=== PATIENT | male | born 1950 | race Caucasian/White ===

== ENCOUNTER 2017-08-25 07:29 | Day surgery (SDC) | payer MEDICARE, OTHER ==
[~2017-08-25] VITALS: Ht 177.8 cm; Wt 109.8 kg
[~2017-08-25 07:29] MED LIST: ALBU90OI INH; AMLO5 PO; DICMIS50EC PO; DOXY100T53 PO; IBUP600 PO; Kristalose20 GM PO; LIDO700A20 TOP; LISI20 PO; LISI5 PO; LORA.5 PO; LORA1 PO; LOSA50 PO; METO100 PO; METO100ER PO; METO50 PO; NAPR220 PO; NEBI5 PO; Omeprazole20 M1 PO; PRAV20 PO; RXLORA1 PO; TAMS.4ER PO; WARF2.5 PO; WARF5 PO
[2018-08-05] MEDS ORDERED: PANT40 PO (09:53)
[2018-08-05] MEDS ORDERED: WARF2.5 PO (09:55)
== END 2017-08-25 09:32 | disposition home or self-care (01) ==
LOC: ORSCMMR 07:29
PROVIDERS: Internal Medicine Gastroenterology
PROC: 0DBP8ZX Excision of Rectum, Via Natural or Artificial Opening Endoscopic, Diagnostic (ICD-10-PCS; principal; 2017-08-25 09:00)
PROC: 0DBN8ZX Excision of Sigmoid Colon, Via Natural or Artificial Opening Endoscopic, Diagnostic (ICD-10-PCS; principal; 2017-08-25 09:00)
DX: Z12.11 Encounter for screening for malignant neoplasm of colon (principal); K62.1 Rectal polyp; K63.5 Polyp of colon; D12.5 Benign neoplasm of sigmoid colon; K57.30 Diverticulosis of large intestine without perforation or abscess without bleeding; Z86.010 Personal history of colon polyps; K90.0 Celiac disease; I10 Essential (primary) hypertension; K21.9 Gastro-esophageal reflux disease without esophagitis; E78.00 Pure hypercholesterolemia, unspecified; Z87.891 Personal history of nicotine dependence; Z79.899 Other long term (current) drug therapy
CPT/HCPCS: 88305; J7120

== ENCOUNTER 2018-02-10 15:37 | Emergency (ER) | payer MEDICARE, OTHER ==
[~2018-02-10] VITALS: Ht 180.3 cm; Wt 113.4 kg
[2018-02-10] MEDS ORDERED: LIDO700A20 TOP (17:37)
== END 2018-02-10 17:43 | disposition home or self-care (01) ==
LOC: ER 15:37
DX: M54.5 Low back pain (principal); Z88.1 Allergy status to other antibiotic agents; Z88.2 Allergy status to sulfonamides; Z88.5 Allergy status to narcotic agent; Z88.6 Allergy status to analgesic agent; Z79.899 Other long term (current) drug therapy; I10 Essential (primary) hypertension; E78.00 Pure hypercholesterolemia, unspecified; F41.9 Anxiety disorder, unspecified
CPT/HCPCS: 51798; 72100; 96372; 99283; J1885

== ENCOUNTER 2018-02-10 19:18 | Emergency (ER) | payer MEDICARE, OTHER ==
[~2018-02-10] VITALS: Ht 180.3 cm; Wt 113.4 kg
== END 2018-02-10 20:35 | disposition left against medical advice (07) ==
LOC: ER 19:18
DX: Z53.21 Procedure and treatment not carried out due to patient leaving prior to being seen by health care provider (principal)
CPT/HCPCS: 99281

== ENCOUNTER 2018-08-09 09:29 | Day surgery (SDC) | payer MEDICARE, OTHER ==
[~2018-08-09] VITALS: Ht 177.8 cm; Wt 115.2 kg
[~2018-08-09 09:29] MED LIST changes: +PANT40 PO
[2018-08-09] MEDS ORDERED: MELO7.5 PO (10:50)
[2018-08-09] MEDS ORDERED: ALBU90OI INH (10:51)
== END 2018-08-09 22:36 | disposition home or self-care (01) ==
LOC: ORSCMMR 09:29 → ORD 10:30 → ORSCMMR 22:36
PROVIDERS: Internal Medicine Gastroenterology
PROC: 0DB58ZX Excision of Esophagus, Via Natural or Artificial Opening Endoscopic, Diagnostic (ICD-10-PCS; principal; 2018-08-09 10:30)
PROC: 0DB98ZX Excision of Duodenum, Via Natural or Artificial Opening Endoscopic, Diagnostic (ICD-10-PCS; principal; 2018-08-09 10:30)
DX: K21.9 Gastro-esophageal reflux disease without esophagitis (principal); K29.80 Duodenitis without bleeding; I10 Essential (primary) hypertension; Z79.899 Other long term (current) drug therapy; Z79.01 Long term (current) use of anticoagulants; Z87.891 Personal history of nicotine dependence
CPT/HCPCS: 88305; 88342; J7120

== ENCOUNTER 2019-04-15 11:02 | Emergency (ER) | payer MEDICARE, OTHER ==
[~2019-04-15] VITALS: Ht 175.3 cm; Wt 114.3 kg
[~2019-04-15 11:02] MED LIST changes: +MELO7.5 PO
[2019-04-15 11:34] LABS: BASOPHILS ABSOLUTE AUTO 0.04 K/mm3 (0.00-0.23); BASOPHILS PERCENT AUTO 1 % (0-2); EOSINOPHILS ABSOLUTE AUTO 0.16 K/mm3 (0.00-0.68); EOSINOPHILS PERCENT AUTO 3 % (0-6); Hematocrit 44.3 % (37.0-53.0); Hemoglobin 15.2 g/dL (13.5-17.5); IMMATURE GRAN ABSOLUTE AUTO 0.02 K/mm3 (0.00-0.10); IMMATURE GRAN PERCENT AUTO 0 % (0-1); LYMPHOCYTES ABSOLUTE AUTO 1.35 K/mm3 (0.84-5.20); LYMPHOCYTES PERCENT AUTO 25 % (21-46); MONOCYTES ABSOLUTE AUTO 0.51 K/mm3 (0.16-1.47); MONOCYTES PERCENT AUTO 9 % (4-13); Mean Corpuscular HGB 29.1 pg (26.0-34.0); Mean Corpuscular HGB Conc 34.3 g/dL (31.5-36.5); Mean Corpuscular Volume 85 fL (80-100); NEUTROPHILS ABSOLUTE AUTO 3.32 K/mm3 (1.96-9.15); NEUTROPHILS PERCENT AUTO 62 % (41-73); Platelet Count 177 K/mm3 (150-400); RDW Coefficient Variation 13.3 % (11.7-14.2); RDW Standard Deviation 41.8 fL (35.1-46.3); Red Blood Cell Count 5.23 M/mm3 (4.30-5.90)
[2019-04-15] MEDS ORDERED: Ultram50 MG PO (11:35)
[2019-04-15 11:46] LABS: International Normalized Ratio 2.95; Prothrombin Time Results 28.3 Sec (9.7-11.5)
[2019-04-15 12:03] LABS: Alanine Aminotransfer (ALT/SGP 23 U/L (12-78); Albumin, Blood 3.9 g/dL (3.4-5.0); Albumin/Globulin Ratio 1.2 (0.8-1.8); Alk Phos 71 U/L (50-136); Anion Gap 8 mmol/L (6-16); Aspartate Aminotrans (AST/SGOT 14 U/L (12-37); Bilirubin, Total 0.8 mg/dL (0.1-1.0); Blood Urea Nitrogen 23 mg/dL (8-24); Bun/Creatinine Ratio 15.4 (12.0-20.0); CO2, Blood 27 mmol/L (21-32); Calcium, Blood 8.9 mg/dL (8.5-10.1); Chloride, Blood 104 mmol/L (98-108); Creatinine, Blood 1.49 mg/dL (0.60-1.20); Globulin, Blood 3.2 g/dL (2.2-4.0); Glomerular Filtration Rate 50 (60-); Glucose, Blood 94 mg/dL (70-99); Potassium, Blood 4.1 mmol/L (3.5-5.5); Sodium, Blood 139 mmol/L (136-145); Total Protein, Blood 7.1 g/dL (6.4-8.2); Troponin I <0.015 ng/mL (0.000-0.040)
[2019-04-15] MEDS ORDERED: HYDR1TAB94 PO (12:46)
== END 2019-04-15 12:55 | disposition home or self-care (01) ==
LOC: ER 11:02
PROVIDERS: Physician Assistant
DX: M62.830 Muscle spasm of back (principal); Z88.1 Allergy status to other antibiotic agents; Z88.8 Allergy status to other drugs, medicaments and biological substances; Z88.5 Allergy status to narcotic agent; Z79.899 Other long term (current) drug therapy; Z79.01 Long term (current) use of anticoagulants; I10 Essential (primary) hypertension; E78.00 Pure hypercholesterolemia, unspecified; Z87.891 Personal history of nicotine dependence
CPT/HCPCS: 36415; 71046; 80053; 84484; 85025; 85610; 93005; 93010; 96374; 96375; 99285-25; J1170; J3360

== ENCOUNTER 2022-09-16 08:43 | Day surgery (SDC) | payer MEDICARE, OTHER ==
[~2022-09-16] VITALS: Ht 175.3 cm; Wt 113.1 kg
[~2022-09-16 08:43] MED LIST changes: +HYDR1TAB94 PO; +Ultram50 MG PO
--- NOTE | 2022-09-16 10:04 | NUR ---
09/16/22 1004 Radha Escalante HISTORY, CHART, MEDICATIONS AND ALLERGIES REVIEWED BEFORE START OF PROCEDURE. PATIENT CONFIRMS NPO STATUS AND AGREES WITH SCHEDULED PROCEDURE. 3-LEAD EKG REVIEWED WITH PHYSICIAN PRIOR TO START OF PROCEDURE. MONITOR INTACT WITH CONTINUOUS PULSE OXIMETRY,CAPNOGRAPHY, 3-LEAD EKG, INTERMITTENT BP. SUPPLEMENTAL O2 TO BE TITRATED THROUGHOUT PROCEDURE TO MAINTAIN O2 SATURATION ABOVE 90%. PATIENT DETERMINED TO BE ASA APPROPRIATE FOR PROPOFOL SEDATION PRIOR TO START OF PROCEDURE BY DR. PRESTON.
--- NOTE | 2022-09-16 11:35 | NUR ---
Patient up to Ambulate independently. Gait steady. Discharge instructions reviewed with patient. Patient verbalizes understanding. Copy given to patient to take home, WELL . Patient States Post-Procedure ride home has been arranged. Discharged via wheelchair to private car for ride home.
== END 2022-09-16 11:35 | disposition home or self-care (01) ==
LOC: ORSCMMR 08:43 → ORD 09:30 → ORSCMMR 09:30
PROVIDERS: Internal Medicine Gastroenterology
PROC: 0DB98ZX Excision of Duodenum, Via Natural or Artificial Opening Endoscopic, Diagnostic (ICD-10-PCS; principal; 2022-09-16 09:30)
PROC: 0DBP8ZX Excision of Rectum, Via Natural or Artificial Opening Endoscopic, Diagnostic (ICD-10-PCS; principal; 2022-09-16 09:30)
PROC: 0DB78ZX Excision of Stomach, Pylorus, Via Natural or Artificial Opening Endoscopic, Diagnostic (ICD-10-PCS; principal; 2022-09-16 09:30)
PROC: 0DB48ZX Excision of Esophagogastric Junction, Via Natural or Artificial Opening Endoscopic, Diagnostic (ICD-10-PCS; principal; 2022-09-16 09:30)
DX: K21.9 Gastro-esophageal reflux disease without esophagitis (principal); Z12.11 Encounter for screening for malignant neoplasm of colon; Z86.010 Personal history of colon polyps; K90.0 Celiac disease; K62.1 Rectal polyp; K44.9 Diaphragmatic hernia without obstruction or gangrene; I10 Essential (primary) hypertension; Z86.718 Personal history of other venous thrombosis and embolism; Z85.46 Personal history of malignant neoplasm of prostate; Z79.899 Other long term (current) drug therapy; Z79.01 Long term (current) use of anticoagulants; Z87.891 Personal history of nicotine dependence; E66.9 Obesity, unspecified; Z68.35 Body mass index [BMI] 35.0-35.9, adult
CPT/HCPCS: 88305; 88342; A9270; J2704; J7120

== ENCOUNTER → 2023-04-02 | Outpatient (CLI) | payer MEDICARE, OTHER ==
[2023-04-02 18:05] LABS: International Normalized Ratio 2.18; Prothrombin Time Results 21.9 Sec (9.7-11.5)
== END ==
LOC: LAB SHORT 15:00 → LAB 15:00
PROVIDERS: Physician Assistant
DX: Z51.81 Encounter for therapeutic drug level monitoring (principal); I82.409 Acute embolism and thrombosis of unspecified deep veins of unspecified lower extremity
CPT/HCPCS: 85610

== ENCOUNTER → 2023-04-06 | Outpatient (CLI) | payer MEDICARE, OTHER | LOC: PLD 08:22 → LAB SHORT 08:22 | DX: B35.1 Tinea unguium (principal); L60.2 Onychogryphosis | CPT/HCPCS: 88305; 88312 ==

== ENCOUNTER → 2023-04-15 | Outpatient (CLI) | payer MEDICARE, OTHER ==
[2023-04-15 14:02] LABS: International Normalized Ratio 2.85; Prothrombin Time Results 28.2 Sec (9.7-11.5)
== END ==
LOC: LAB 11:36 → LAB SHORT 11:36
PROVIDERS: Physician Assistant
DX: I82.409 Acute embolism and thrombosis of unspecified deep veins of unspecified lower extremity (principal)
CPT/HCPCS: 85610

== ENCOUNTER 2023-11-27 16:51 | Inpatient (IN) | payer MEDICARE, OTHER ==
[~2023-11-27] VITALS: Ht 177.8 cm; Wt 89.7 kg
[~2023-11-27 16:51] MED LIST changes: +AMLO10 PO; -AMLO5 PO; -METO50 PO
[2023-11-27 17:18] LABS: BASOPHILS ABSOLUTE AUTO 0.03 K/mm3 (0.00-0.23); BASOPHILS PERCENT AUTO 1 % (0-2); EOSINOPHILS ABSOLUTE AUTO 0.04 K/mm3 (0.00-0.68); EOSINOPHILS PERCENT AUTO 1 % (0-6); Hematocrit 45.7 % (37.0-53.0); Hemoglobin 15.9 g/dL (13.5-17.5); IMMATURE GRAN ABSOLUTE AUTO 0.01 K/mm3 (0.00-0.10); IMMATURE GRAN PERCENT AUTO 0 % (0-1); LYMPHOCYTES ABSOLUTE AUTO 0.88 K/mm3 (0.84-5.20); LYMPHOCYTES PERCENT AUTO 14 % (21-46); MONOCYTES ABSOLUTE AUTO 0.73 K/mm3 (0.16-1.47); MONOCYTES PERCENT AUTO 11 % (4-13); Mean Corpuscular HGB 28.6 pg (26.0-34.0); Mean Corpuscular HGB Conc 34.8 g/dL (31.5-36.5); Mean Corpuscular Volume 82 fL (80-100); Mean Platelet Volume 8.6 fL (9.1-12.4); NEUTROPHILS ABSOLUTE AUTO 4.82 K/mm3 (1.96-9.15); NEUTROPHILS PERCENT AUTO 74 % (41-73); Platelet Count 178 K/mm3 (150-400); RDW Coefficient Variation 13.9 % (11.7-14.2); RDW Standard Deviation 41.9 fL (35.1-46.3); Red Blood Cell Count 5.56 M/mm3 (4.30-5.90); White Blood Cell Count 6.51 K/mm3 (4.00-11.30)
[2023-11-27] MEDS ORDERED: Ipratropium/Albuterol SulF 2.5-0.5MG/3 ML Amp INH ONE (17:35)
[2023-11-27 17:40] LABS: Albumin, Blood 3.8 g/dL (3.4-5.0); Bun/Creatinine Ratio 16.9 (12.0-20.0); Calcium, Blood 8.9 mg/dL (8.5-10.1); Creatinine, Blood 1.54 mg/dL (0.60-1.20); Globulin, Blood 3.8 g/dL (2.2-4.0); Total Protein, Blood 7.6 g/dL (6.4-8.2)
[2023-11-27 17:55] LABS: Influenza A, PCR NEGATIVE (NEGATIVE); Influenza B, PCR NEGATIVE (NEGATIVE); Resp Syncytial Virus, PCR NEGATIVE (NEGATIVE); SARS-Cov-2 (COVID-19) PCR, MMC NEGATIVE (NEGATIVE)
[2023-11-27 18:18] LABS: International Normalized Ratio 1.55; Prothrombin Time Results 15.9 Sec (9.7-11.5)
[2023-11-27] MEDS ORDERED: Azithromycin 500 MG in NS 250 ML IV ONE (19:30)
[2023-11-27] MEDS ORDERED: CefTRIAXone Sodium 1,000 MG in NS 50 ML IV ONE (19:30)
[2023-11-27] MEDS ORDERED: Acetaminophen 325 MG TABLET PO PRN (19:55)
[2023-11-27] MEDS ORDERED: Warfarin Sodium 2.5 MG Tab PO ONE (21:00)
[2023-11-27] MEDS ORDERED: Lactobacil 2-S.Thermo-Bifido 1 1 Cap PO SCH (21:00)
[2023-11-27] MEDS ORDERED: PANTOPRAZOLE SO40 M2 PO (21:41)
[2023-11-27] MEDS ORDERED: HYDHCL25 PO (21:41)
[2023-11-27 22:14] VITALS: BP 160/76
[2023-11-28] MEDS ORDERED: Albuterol HFA200 ACT/6.7 GM INH INH PRN (03:45)
[2023-11-28 04:51] LABS: BASOPHILS ABSOLUTE AUTO 0.02 K/mm3 (0.00-0.23); BASOPHILS PERCENT AUTO 0 % (0-2); EOSINOPHILS ABSOLUTE AUTO 0.03 K/mm3 (0.00-0.68); EOSINOPHILS PERCENT AUTO 1 % (0-6); Hematocrit 42.8 % (37.0-53.0); Hemoglobin 14.9 g/dL (13.5-17.5); IMMATURE GRAN ABSOLUTE AUTO 0.02 K/mm3 (0.00-0.10); IMMATURE GRAN PERCENT AUTO 0 % (0-1); LYMPHOCYTES PERCENT AUTO 18 % (21-46); MONOCYTES ABSOLUTE AUTO 0.82 K/mm3 (0.16-1.47); MONOCYTES PERCENT AUTO 14 % (4-13); Mean Corpuscular HGB 28.6 pg (26.0-34.0); Mean Corpuscular HGB Conc 34.8 g/dL (31.5-36.5); Mean Corpuscular Volume 82 fL (80-100); Mean Platelet Volume 8.9 fL (9.1-12.4); NEUTROPHILS ABSOLUTE AUTO 4.09 K/mm3 (1.96-9.15); NEUTROPHILS PERCENT AUTO 67 % (41-73); Platelet Count 174 K/mm3 (150-400); RDW Coefficient Variation 14.1 % (11.7-14.2); RDW Standard Deviation 42.4 fL (35.1-46.3); Red Blood Cell Count 5.21 M/mm3 (4.30-5.90); White Blood Cell Count 6.08 K/mm3 (4.00-11.30)
[2023-11-28 05:04] LABS: International Normalized Ratio 1.48; Prothrombin Time Results 15.2 Sec (9.7-11.5)
[2023-11-28 05:15] LABS: Albumin, Blood 3.5 g/dL (3.4-5.0); Albumin/Globulin Ratio 1.1 (0.8-1.8); Bilirubin, Total 0.8 mg/dL (0.1-1.0); Bun/Creatinine Ratio 17.1 (12.0-20.0); Calcium, Blood 8.7 mg/dL (8.5-10.1); Creatinine, Blood 1.46 mg/dL (0.60-1.20); Globulin, Blood 3.2 g/dL (2.2-4.0); Magnesium, Blood 2.2 mg/dL (1.6-2.4); Potassium, Blood 3.7 mmol/L (3.5-5.5); Total Protein, Blood 6.7 g/dL (6.4-8.2)
--- NOTE | 2023-11-28 05:18 | NUR ---
SHIFT SUMMARY PATIENT WAS ABLE TO GET SOME REST. DID NOT REQUIRE ASSISTANCE AFTER ADMIT. REMAINS ON O2/2L/NC
[2023-11-28 05:35] VITALS: BP 141/77
[2023-11-28 07:21] VITALS: BP 134/81
[2023-11-28] MEDS ORDERED: HyDROXyzine HCl 25 MG Tab PO PRN (07:30)
[2023-11-28] MEDS ORDERED: Pantoprazole Sodium 40 MG Tab PO SCH (08:00)
[2023-11-28] MEDS ORDERED: AmLODIPine Besylate 5 MG Tab PO SCH (09:00)
[2023-11-28] MEDS ORDERED: Metoprolol Succinate 50 MG TABCR PO SCH (09:00)
[2023-11-28] MEDS ORDERED: Lisinopril 20 MG Tab PO SCH (09:00)
[2023-11-28 15:45] VITALS: BP 130/90
[2023-11-28] MEDS ORDERED: NS 100 ML IV ONE (17:55)
[2023-11-28] MEDS ORDERED: Warfarin Sodium 5 MG Tab PO ONE (18:00)
[2023-11-28] MEDS ORDERED: Azithromycin 500 MG in NS 250 ML IV SCH (18:00)
[2023-11-28] MEDS ORDERED: CefTRIAXone Sodium 1,000 MG in NS 100 ML IV SCH (18:00)
--- NOTE | 2023-11-28 19:23 | NUR ---
DAY SHIFT SUMMARY: A&Ox4. PLEASANT AND COOPERATIVE WITH CARE. CALLS APPROPRIATELY AND IS ABLE TO COMMUNICATE NEEDS EFFECTIVELY. ABx THIS AFTERNOON. USING 2LPM VIA NC; RA AT [facility]. NO ACUTE CONCERNS THIS SHIFT. REPORT TO ONCOMING RN.
[2023-11-28 19:26] VITALS: BP 124/75
[2023-11-28] MEDS ORDERED: NS 250 ML IV PRN (20:00)
[2023-11-28] MEDS ORDERED: GuaiFENesin 600 MG TabCR PO SCH (21:00)
[2023-11-29 04:00] VITALS: BP 134/76
[2023-11-29 04:21] LABS: International Normalized Ratio 1.81; Prothrombin Time Results 18.4 Sec (9.7-11.5)
--- NOTE | 2023-11-29 05:12 | NUR ---
SHIFT SUMMARY 73 YR M ADMITTED ON 11/28/23. FULL CODE. NO ACUTE CHANGES THIS SHIFT. PT ACCIDENTLY PULLED HIS IV OUT THIS SHIFT AND WAS VERY APOLOGETIC. A NEW IV WAS PLACED IN HIS RIGHT FOREARM. PT STATES THAT HE IS FEELING BETTER. HE IS A&O 4 AND INDEPENDANT IN THE ROOM.
[2023-11-29 07:27] VITALS: BP 129/85
[2023-11-29 15:53] VITALS: BP 148/80
[2023-11-29] MEDS ORDERED: Warfarin Sodium 4 MG Tab PO ONE (18:00)
--- NOTE | 2023-11-29 18:40 | NUR ---
SHIFT SUMMARY AOX4, SBA TO IND IN ROOM. USES CALL LIGHT APPROPRIATELY. LUNGS SOUNDS ARE COURSE AND DIM. PATIENT ON 2L NC SPO2 REMAINS ABOVE 92%. ALBUTLEROL INHALER PRN TODAY. IV ABX THIS EVENING. ABLE TO TOLERATE MEALS. VOIDING SPONTANEOUSLY. SEVERAL VISITORS T/O DAY. NO ACUTE EVENTS THIS SHIFT CALL LIGHT IN REACH.
[2023-11-29 19:28] VITALS: BP 129/79
[2023-11-30 04:44] VITALS: BP 127/74
--- NOTE | 2023-11-30 05:14 | NUR ---
SHIFT SUMMARY 73 YR M ADMITTED FOR [facility] PNA/ARF. FULL CODE. NO ACUTE CHANGES THIS SHIFT. PT STATES HE IS FEELING BETTER AND HIS APPETITE IS IMPROVING. HE IS STILL NOT FEELING UP TO PAR AND STATED THAT HE JUST WANTS TO GET BACK TO NORMAL AND GO HOME. HE IS VERY PLEASANT AND COOPERATIVE WITH CARE. INDEPENDANT IN THE ROOM. CALL LIGHT IN REACH.
[2023-11-30 05:26] LABS: International Normalized Ratio 2.25; Prothrombin Time Results 22.6 Sec (9.7-11.5)
[2023-11-30 07:23] VITALS: BP 136/84
--- NOTE | 2023-11-30 12:24 | NUR ---
Spiritual care visit conducted. Patient explains about the medical events that occurred and the wonderful medical care he has received. He talks about his strong [employer] gerardo, his , and their high level of involvement in the congregation. He tells me that his medical technologist clinical and several members from the congregation had visited him in the hospital and that he felt blessed but exhausted from all the energy it took to stay engaged. I limited my time by only providing therapeutic listening and brief theological insights and encouragements. I will continue to remain available to patient and family.
[2023-11-30] MEDS ORDERED: GUAI600T33 PO (13:23)
[2023-11-30] MEDS ORDERED: VISBIOME 112.51 EACH PO (13:25)
[2023-11-30] MEDS ORDERED: AMOX-CLAV 875-1 EAC5 PO (13:25)
[2023-11-30] MEDS ORDERED: IPRAT-ALBUT 0.5-3 ML INH (14:14)
--- NOTE | 2023-11-30 14:41 | NUR ---
DISCHARGE NOTE: DISCHARGE DISCUSSED WITH PATIENT. NEBULIZER DELIVERED AND MEDS FAXED TO PHARMACY. HE GOT HIMSELF DRESSED AND BELONGINGS COLLECTED. PATIENT DECLINED TO BE WHEELED OUT BY STAFF. NO SIGNS OR SYMPTOMS OF DISTRESS DURING DISCHARGE.
[2023-11-30] MEDS ORDERED: Warfarin Sodium 2.5 MG Tab PO ONE (18:00)
== END 2023-11-30 14:36 | disposition home or self-care (01) | DRG 193 ==
LOC: ER 16:51 → MEDS 16:52 → ERHOLD 16:52 → MEDS 22:07
PROVIDERS: Student in an Organized Health Care Education/Training Program; ADMIT Student in an Organized Health Care Education/Training Program
DX: J18.9 Pneumonia, unspecified organism (principal); J96.01 Acute respiratory failure with hypoxia; K90.0 Celiac disease; I12.9 Hypertensive chronic kidney disease with stage 1 through stage 4 chronic kidney disease, or unspecified chronic kidney disease; N18.30 Chronic kidney disease, stage 3 unspecified; G47.33 Obstructive sleep apnea (adult) (pediatric); Z86.718 Personal history of other venous thrombosis and embolism; Z88.1 Allergy status to other antibiotic agents; Z88.5 Allergy status to narcotic agent; Z88.2 Allergy status to sulfonamides; Z91.018 Allergy to other foods; Z79.01 Long term (current) use of anticoagulants; Z79.899 Other long term (current) drug therapy; Z86.711 Personal history of pulmonary embolism; Z87.891 Personal history of nicotine dependence
CPT/HCPCS: 0241U; 36415; 71046; 80053; 83735; 83880; 84145; 84484; 85025; 85610; 87449; 94640; 94664; 94760; 96365; 96366; 96367; 97116; 97162; 97530; 99285-25; A9270; G0378; J0456; J0696; J7050

== ENCOUNTER 2023-12-28 11:33 | Emergency (ER) | payer MEDICARE, OTHER ==
[~2023-12-28] VITALS: Ht 175.3 cm; Wt 111.6 kg
[~2023-12-28 11:33] MED LIST changes: +AMOX-CLAV 875-1 EAC5 PO; +GUAI600T33 PO; +HYDHCL25 PO; +IPRAT-ALBUT 0.5-3 ML INH; +PANTOPRAZOLE SO40 M2 PO; +VISBIOME 112.51 EACH PO
[2023-12-28 12:20] LABS: BASOPHILS ABSOLUTE AUTO 0.03 K/mm3 (0.00-0.23); BASOPHILS PERCENT AUTO 1 % (0-2); EOSINOPHILS PERCENT AUTO 2 % (0-6); Hematocrit 43.1 % (37.0-53.0); Hemoglobin 14.9 g/dL (13.5-17.5); IMMATURE GRAN ABSOLUTE AUTO 0.01 K/mm3 (0.00-0.10); IMMATURE GRAN PERCENT AUTO 0 % (0-1); LYMPHOCYTES ABSOLUTE AUTO 1.02 K/mm3 (0.84-5.20); LYMPHOCYTES PERCENT AUTO 21 % (21-46); MONOCYTES ABSOLUTE AUTO 0.48 K/mm3 (0.16-1.47); MONOCYTES PERCENT AUTO 10 % (4-13); Mean Corpuscular HGB 28.9 pg (26.0-34.0); Mean Corpuscular HGB Conc 34.6 g/dL (31.5-36.5); Mean Corpuscular Volume 84 fL (80-100); Mean Platelet Volume 8.9 fL (9.1-12.4); NEUTROPHILS ABSOLUTE AUTO 3.32 K/mm3 (1.96-9.15); NEUTROPHILS PERCENT AUTO 67 % (41-73); Platelet Count 141 K/mm3 (150-400); RDW Coefficient Variation 13.8 % (11.7-14.2); RDW Standard Deviation 42.2 fL (35.1-46.3); Red Blood Cell Count 5.15 M/mm3 (4.30-5.90); White Blood Cell Count 4.96 K/mm3 (4.00-11.30)
[2023-12-28 12:32] LABS: Albumin/Globulin Ratio 1.4 (0.8-1.8); Bilirubin, Total 0.6 mg/dL (0.1-1.0); Bun/Creatinine Ratio 12.1 (12.0-20.0); Calcium, Blood 9.2 mg/dL (8.5-10.1); Creatinine, Blood 1.49 mg/dL (0.60-1.20); Globulin, Blood 2.9 g/dL (2.2-4.0); Potassium, Blood 4.3 mmol/L (3.5-5.5); Total Protein, Blood 6.9 g/dL (6.4-8.2)
[2023-12-28] MEDS ORDERED: BUDESONIDE-FO10.2 G3 INH (16:01)
[2023-12-28 16:40] VITALS: BP 161/88
== END 2023-12-28 16:48 | disposition home or self-care (01) ==
LOC: ER 11:33
PROVIDERS: Physician Assistant
DX: R06.02 Shortness of breath (principal); I10 Essential (primary) hypertension; Z79.01 Long term (current) use of anticoagulants; Z79.1 Long term (current) use of non-steroidal anti-inflammatories (NSAID); Z79.899 Other long term (current) drug therapy; Z88.5 Allergy status to narcotic agent; Z88.1 Allergy status to other antibiotic agents; Z88.2 Allergy status to sulfonamides; Z91.018 Allergy to other foods; Z87.891 Personal history of nicotine dependence
CPT/HCPCS: 71046; 80053; 83880; 84484; 85025; 93005; 93010; 99285-25

== ENCOUNTER 2025-04-03 18:57 | Emergency (ER) | payer MEDICARE, OTHER ==
[~2025-04-03] VITALS: Ht 175.3 cm; Wt 105.7 kg
[~2025-04-03 18:57] MED LIST changes: +BUDESONIDE-FO10.2 G3 INH
[2025-04-03 20:03] LABS: BASOPHILS ABSOLUTE AUTO 0.03 K/mm3 (0.00-0.23); BASOPHILS PERCENT AUTO 1 % (0-2); EOSINOPHILS ABSOLUTE AUTO 0.08 K/mm3 (0.00-0.68); EOSINOPHILS PERCENT AUTO 2 % (0-6); Hematocrit 41.9 % (37.0-53.0); Hemoglobin 14.7 g/dL (13.5-17.5); IMMATURE GRAN ABSOLUTE AUTO 0.01 K/mm3 (0.00-0.10); IMMATURE GRAN PERCENT AUTO 0 % (0-1); LYMPHOCYTES ABSOLUTE AUTO 1.22 K/mm3 (0.84-5.20); LYMPHOCYTES PERCENT AUTO 22 % (21-46); MONOCYTES ABSOLUTE AUTO 0.48 K/mm3 (0.16-1.47); MONOCYTES PERCENT AUTO 9 % (4-13); Mean Corpuscular HGB Conc 35.1 g/dL (31.5-36.5); Mean Corpuscular Volume 82 fL (80-100); NEUTROPHILS ABSOLUTE AUTO 3.64 K/mm3 (1.96-9.15); NEUTROPHILS PERCENT AUTO 67 % (41-73); NRBC ABSOLUTE 0.00 K/mm3 (0.00-0.02); NRBC Auto 0.0 /100 WBC (0.0-0.2); Platelet Count 177 K/mm3 (150-400); RDW Coefficient Variation 13.2 % (11.7-14.2); RDW Standard Deviation 39.6 fL (35.1-46.3)
[2025-04-03 20:24] LABS: Alanine Aminotransfer (ALT/SGP 24.0 U/L (12-78); Albumin, Blood 3.9 g/dL (3.4-5.0); Albumin/Globulin Ratio 1.1 (0.8-1.8); Anion Gap 8.0 mmol/L (3-11); Aspartate Aminotrans (AST/SGOT 30.0 U/L (12-37); Bilirubin, Total 0.8 mg/dL (0.1-1.0); Blood Urea Nitrogen 21.0 mg/dL (8-24); CO2, Blood 27.0 mmol/L (21-32); Calcium, Blood 8.7 mg/dL (8.5-10.1); Chloride, Blood 106.0 mmol/L (98-108); Creatinine, Blood 1.73 mg/dL (0.60-1.20); Globulin, Blood 3.4 g/dL (2.2-4.0); Glucose, Blood 95.0 mg/dL (70-99); Potassium, Blood 4.2 mmol/L (3.5-5.5); Sodium, Blood 137.0 mmol/L (136-145); Total Protein, Blood 7.3 g/dL (6.4-8.2)
[2025-04-03 23:01] VITALS: BP 149/85
== END 2025-04-03 23:13 | disposition home or self-care (01) ==
LOC: ER 18:57
PROVIDERS: Student in an Organized Health Care Education/Training Program
DX: R03.1 Nonspecific low blood-pressure reading (principal); I10 Essential (primary) hypertension; K90.0 Celiac disease; Z87.891 Personal history of nicotine dependence; Z88.1 Allergy status to other antibiotic agents; Z88.5 Allergy status to narcotic agent; Z88.2 Allergy status to sulfonamides; Z91.018 Allergy to other foods; Z79.01 Long term (current) use of anticoagulants; Z79.899 Other long term (current) drug therapy
CPT/HCPCS: 71046; 80053; 83690; 83880; 84484; 85025